=== PATIENT | male | born 1980 | race Caucasian/White ===

== ENCOUNTER 2017-01-15 17:34 | Emergency (ER) | payer OTHER ==
[~2017-01-15] VITALS: Ht 190.5 cm; Wt 88.9 kg
[~2017-01-15 17:34] MED LIST: DIVA250ER PO; MOTI25CH PO; SERO400T PO; ZOFR4TAB3 SL
[2017-01-15 17:39] VITALS: BP 107/78; PULSE 73; RESP 17; TEMP 97.6; O2SAT 98
[2017-01-15] MEDS ORDERED: QUET400XR PO (18:01)
[2017-01-15] MEDS ORDERED: KLON2TAB PO (18:01)
[2017-01-15] MEDS ORDERED: DEPA500T3 PO (18:01)
--- NOTE | 2017-01-15 18:18 | PD ---
HPI Chief Complaint: Oral / Dental Pain or Problem Time Seen by Provider: 18:18 Travel History International Travel<30 days: No Contact w/Intl Traveler<30days: No Traveled to known affect area: No History of Present Illness HPI 36-year-old male presents the emergency department with sudden onset left-sided pain and swelling below the left jaw similar to previous sialoadenitis, which he had approximately a year ago. Requiring IV antibiotics. Patient denies fever, chills, or dental pain at this time. States his symptoms started approximately 24 hours ago and worsened. He is concerned of recurrent infection similar to previous. He has no headache, sore throat, or difficulty swallowing. He has no fever, chills, or cough. No abdominal pain. He has no known drug allergies. 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 Reported Depakote ER (Divalproex Sodium) 500 Mg Karin 1,000 Mg PO HS Klonopin (Clonazepam) 2 Mg Tab 2 Mg PO HS Seroquel XR (Quetiapine Fumarate) 400 Mg Tab 400 Mg PO HS Review of Systems Except as stated in HPI: all other systems reviewed are Neg General / Constitutional: No: Fever Eyes: No: Visual changes HENT: Positive: Neck Pain (see history present illness.), No: Headaches, Sore Throat, Rhinitis, Rhinorrhea, Congestion, Dental Difficulties, Ear Discharge, Earache Cardiovascular: No: Chest Pain or Discomfort Respiratory: No: Shortness of Breath Gastrointestinal: No: Abdominal Pain Genitourinary: No: Dysuria Musculoskeletal: No: Pain Skin: No Rash Neurologic: No: Weakness Psychiatric: No: Depression Endocrine: No: Polydipsia Hematologic/Lymphatic: No: Easy Bruising Physical Exam Narrative GENERAL: Patient appears in mild distress. SKIN: Warm and dry. Normal color. Normal turgor. No rash. HEAD: Atraumatic. Normocephalic. EYES: Pupils equal and round. No scleral icterus. No injection or drainage. ENT: No nasal bleeding or discharge. Mucous membranes pink and moist. Pharynx appears normal. No dental pain. Patient has tenderness below the ramus of the left jawline with localized swelling and tenderness consistent with sialoadenitis. NECK: Trachea midline. Supple and nontender without significant lymphadenopathy. CARDIOVASCULAR: Regular rate and rhythm. RESPIRATORY: No accessory muscle use. Clear to auscultation. Breath sounds equal bilaterally. MUSCULOSKELETAL: Extremities without clubbing, cyanosis, or edema. No obvious deformities. NEUROLOGICAL: Awake and alert. No obvious cranial nerve deficits. Motor grossly within normal limits. Five out of 5 muscle strength in the arms and legs. Normal speech. PSYCHIATRIC: Appropriate mood and affect; insight and judgment normal. Data Data Last Documented VS Vital Signs Date Time Temp Pulse Resp B/P Pulse Ox O2 Delivery O2 Flow Rate FiO2 01/15/17 17:39 97.6 73 17 107/78 98 Orders Ketorolac Inj (Toradol Inj) (01/15/17 18:30) Amoxicil-Clavulanate (Augmentin) (01/15/17 18:30) [facility] Medical Decision Making Medical Screen Exam Complete: Yes Emergency Medical Condition: Yes Differential Diagnosis Dental abscess. sialoadenitis. Lymphangitis. Narrative Course Patient is medically stable at time of exam. Patient is given Augmentin 875 by mouth now as well as Toradol 60 mg IM. She will be continued on Augmentin 875 twice a day 10 days. Patient is given ibuprofen 800 mg 3 times daily with food #30. Patient is given acetaminophen 500 mg 2 tabs every 6 hours when necessary pain. Patient is to follow-up with primary care physician or return to emergency Department with worsening symptoms as needed. Diagnosis Primary Impression: Infectious sialoadenitis of major salivary gland Referrals: Primary Care Physician Patient Instructions: General Instructions, Sialoadenitis (ED) Additional Instructions: Patient is given Augmentin 875 by mouth now as well as Toradol 60 mg IM. She will be continued on Augmentin 875 twice a day 10 days. Patient is given ibuprofen 800 mg 3 times daily with food #30. Patient is given acetaminophen 500 mg 2 tabs every 6 hours when necessary pain. Patient is to follow-up with primary care physician or return to emergency Department with worsening symptoms as needed. Med/Other Pt SpecificInfo: Prescription(s) given Scripts Acetaminophen (Acetaminophen Extra Strength)500 Mg Cap1,000 Mg PO Q6H PRN (PAIN SCALE 4 TO 10) #60 CAP Ref 1 Prov:Clarence Estevez MD 01/15/17 Ibuprofen 800 Mg [id number] Mg PO Q8H PRN (Pain/Inflammation) #30 TAB Prov:Clarence Estevez MD 01/15/17 Amoxicillin-Clavulanate (Augmentin)875-125 mg [id number] Mg PO BID #20 TAB not for use in CrCl <30 ml/min. Prov:Clarence Estevez MD 01/15/17 Disposition: 01 DISCHARGE HOME Condition: Stable Shane Kunz Jan 15, 2017 18:18
[2017-01-15] MEDS ORDERED: AMOXICILLIN/CLAVULANATE K 875 MG TAB PO ONE (18:30)
[2017-01-15] MEDS ORDERED: KETOROLAC TROMETHAMINE 60 MG/2 ML (IM) VIAL IM ONE (18:30)
[2017-01-15] MEDS ORDERED: IBUP800T23 PO (18:31)
[2017-01-15] MEDS ORDERED: EXTR500C PO (18:31)
[2017-01-15] MEDS ORDERED: AUGM875T PO (18:31)
== END 2017-01-15 18:41 | disposition home or self-care (01) ==
LOC: PHED 17:34 → PHEFT 18:41
DX: K11.20 Sialoadenitis, unspecified (principal)
CPT/HCPCS: 96372; 99283; J1885

== ENCOUNTER → 2017-09-08 | Outpatient (CLI) | payer OTHER ==
[~2017-09-08] MED LIST changes: +AUGM875T PO; +DEPA500T3 PO; -DIVA250ER PO; +EXTR500C PO; +IBUP1TAB7 PO; +KLON2TAB PO; -MOTI25CH PO; +QUET400XR PO; -SERO400T PO; -ZOFR4TAB3 SL
--- NOTE | 2017-09-08 09:50 | RADRPT ---
EXAM DATE/TIME: 09/08/2017 09:32 [facility] COMPARISON: No previous studies available for comparison. INDICATIONS : Cough, "tickle" in throat for approximately one year. MEDICAL HISTORY : None. SURGICAL HISTORY : Left wrist. Bilateral eyes. ENCOUNTER: Initial ACUITY: 1 year PAIN SCORE: 0/10 LOCATION: chest FINDINGS: PA and lateral views of the chest demonstrate the lungs to be symmetrically aerated without evidence of mass, infiltrate or effusion. The cardiomediastinal contours are unremarkable. Osseous structure s are intact. CONCLUSION: No acute disease. Tommy Webster Jr., MD on September 08, 2017 at 9:48 Board Certified Radiologist. This report was verified electronically.
--- NOTE | 2017-09-12 12:00 | RSPPFT ---
DATE OF PROCEDURE: 09/08/17 COMMENTS: Spirometry with FVC of 5.6, FEV1 of 3.1, FEV1/FVC ratio at 56%. A non-significant response to acutely inhaled bronchodilator noted. TLC is 98%. Diffusion capacity is reduced to 71% however it is normal when corrected for alveolar volume. IMPRESSION: 1. Mild airways obstruction. 2. Non-significant response to acutely inhaled bronchodilator. 3. No evidence of airways restriction.
== END ==
LOC: HRSP 08:00
PROVIDERS: ATTEND Internal Medicine Sleep Medicine
DX: R06.89 Other abnormalities of breathing (principal)
CPT/HCPCS: 71020; 94060; 94726; 94729